=== PATIENT | female | born 1930 ===

== ENCOUNTER 2017-12-24 15:55 | Emergency (ER) | payer MEDICARE ==
[2017-12-24 16:01] VITALS: BP 133/70; PULSE 60; RESP 18; TEMP 97.6; O2SAT 99
--- NOTE | 2017-12-24 17:11 | ED PDOC ---
HPI: Abdomen Time Seen by Provider: 12/24/17 16:42 Chief Complaint (Nursing): Abdominal Pain Chief Complaint (Provider): Abdominal Pain History Per: Family (daughter) History/Exam Limitations: clinical condition (dementia) Onset/Duration Of Symptoms: Days (x1) Current Symptoms Are (Timing): Better Additional Complaint(s): 87 year old female with medical history of dementia, breast cancer and hypertension brought in daughter for evaluation. States she has been constipated and today had a large hard BM, after which she complained of chest pain, weakness and abdominal pain. Daughter stated symptoms resolved after few hours since onset. Daughter also reported that patient was recently discharged from [facility] 2 weeks ago and has an ulcer on R heel. PMD: Jai Chatterjee MD Past Medical History Reviewed: Historical Data, Nursing Documentation, Vital Signs Vital Signs: Last Vital Signs Temp 97.6 F 12/24/17 15:58 Pulse 60 12/24/17 15:58 Resp 18 12/24/17 15:58 BP 133/70 12/24/17 15:58 Pulse Ox 99 12/24/17 22:04 - Medical History PMH: Dementia, HTN, Malignancy (breast CA) Denies: No Chronic Diseases - Surgical History Surgical History: Cholecystectomy Denies: No Surg Hx Other surgeries: left breast lumpectomy - Family History Family History: States: Unknown Family Hx - Social History Current smoker - smoking cessation education provided: No Alcohol: None Drugs: Denies - Allergies Allergies/Adverse Reactions: Allergies Allergy/AdvReac Type Severity Reaction Status Date / Time No Known Allergies Allergy Verified 12/24/17 15:58 Review of Systems ROS Statement: Except As Marked, All Systems Reviewed And Found Negative Constitutional: Positive for: Weakness (generalized) Cardiovascular: Positive for: Chest Pain Gastrointestinal: Positive for: Abdominal Pain, Constipation Physical Exam - Reviewed Nursing Documentation Reviewed: Yes Vital Signs Reviewed: Yes - Physical Exam Appears: Positive for: Non-toxic, No Acute Distress Head Exam: Positive for: ATRAUMATIC, NORMAL INSPECTION, NORMOCEPHALIC Eye Exam: Positive for: Normal appearance, EOMI, PERRL Cardiovascular/Chest: Positive for: Regular Rate, Rhythm Respiratory: Positive for: Normal Breath Sounds. Negative for: Decreased Breath Sounds, Respiratory Distress Gastrointestinal/Abdominal: Positive for: Normal Exam, Soft. Negative for: Tenderness, Mass, Distended Extremity: Positive for: Tenderness (right heel), Pedal Edema, Deformity (right heel eschar), Swelling Neurologic/Psych: Positive for: Alert, inventory and pricing associate II-XII (Grossly normal). Negative for: Oriented, Facial Droop - Laboratory Results Result Diagrams: 12/24/17 17:27 12/24/17 17:27 - ECG Interpretation Of ECG: Ventricular-paced @ 60. O2 Sat by Pulse Oximetry: 99 (RA) Pulse Ox Interpretation: Normal - Radiology X-Ray: Interpreted by [facility] X-Ray Interpretation: No Acute Disease Medical Decision Making Medical Decision Making: Initial Impression: Abdominal pain Initial Plan: * CT ABD/pelvis with IV contrast * CT head without contrast * EKG * CMP * Troponin I * Urine dipstick * CBC * PTT * PT * CXR * UA ____ Time: 1857 --CT Head FINDINGS: Brain: Moderate atrophy. No intracranial hemorrhage. No mass. Mqmh-[id number] encephalomalacia within left frontal region. Several scattered foci of decreased attenuation within periventricular/subcortical white matter. No definite edema. Ventricles: No hydrocephalus. Bones/joints: No acute fracture. Soft tissues: Unremarkable. Vasculature: Atherosclerotic disease of intracranial arteries. Sinuses: No acute sinusitis. Mastoid air cells: Partial opacification of LEFT mastoid. Auditory system: Cerumen. Orbits: Unremarkable as visualized. IMPRESSION: 1. Nonspecific white matter changes. Acute infarction may be CT occult within first 24 hours. If a focal deficit persists, consider followup CT or MRI for further evaluation. 2. Mastoid disease. 3. Incidental/non-acute findings are described above. Time: 1923 --CT ABD/pelvis FINDINGS: Limitations: Motion artifact - mild. Streak artifact - mild. Lower thorax: Cfpv-ci-[id number] cardiomegaly. Pacemaker lead. Minimal atelectasis /scarring. Trace to small bilateral pleural effusions. ABDOMEN: Liver: Fatty infiltration. Small calcification. Gallbladder and bile ducts: No calcified stones. No ductal dilation. Pancreas: No ductal dilation. No mass. Spleen: 1.2 x 1.0 x 2.2 cm focal lobulation or exophytic isodense lesion. Too small to characterize hypodense lesion. No splenomegaly. Adrenals: No mass. Kidneys and ureters: Few too small to characterize lesions within kidneys. No hydronephrosis. Stomach and bowel: Postsurgical changes of sigmoid colon. Few scattered diverticula within colon. No associated inflammatory stranding. No definite mural thickening. No obstruction. Appendix: Normal caliber. No inflammation. PELVIS: Bladder: Unremarkable. Reproductive: Unremarkable as visualized. ABDOMEN and PELVIS: Intraperitoneal space: No significant fluid collection. No free air. Bones/joints: RIGHT hip arthroplasty. Dynamic compression screw left femur. Mild compression fracture superior endplate L1 vertebral body, acute or subacute. Schmorl's nodes at several levels. Degenerative changes of spine. Soft tissues: Small to moderate lower ventral hernia containing loops of small bowel without obstruction. Vasculature: Extensive atherosclerotic disease. No aneurysm. IVC filter. Lymph nodes: No pathologically enlarged lymph nodes. IMPRESSION: 1. Diverticulosis without definite CT evidence of diverticulitis. 2. L1 compression fracture, acute or subacute. 3. Possible splenic lesion. Suggest nonemergent follow up. 4. Incidental/non-acute findings are described above. ____ Time: 2049 --CT findings discussed with daughter which reported an old lumbar fracture. Explained to daughter the need for admission. Daughter stated that the patient "has dementia and is unsure if she has chest pain or not. Go ahead, ask her if she has chest pain and she'll say no". Provider asked daughter "Did you not just say that she has dementia?" Daughter became agitated and said she if going to take the patient home AMA. --Provider has discussed with patient's daughter that without further evaluation and monitoring there may be unforeseen circumstances and/or deterioration causing permanent bodily harm or as a result of their choice. The patient's daughter continues to wish to leave against medical advice. Scribe Attestation: Documented by Vivi Cruz, acting as a scribe for Smiley Casey MD. Provider Scribe Attestation: All medical record entries made by the Scribe were at my direction and personally dictated by me. I have reviewed the chart and agree that the record accurately reflects my personal performance of the history, physical exam, medical decision making, and the department course for this patient. I have also personally directed, reviewed, and agree with the discharge instructions and disposition. Disposition - Clinical Impression Clinical Impression: Chest pain - Disposition Disposition: Against Medical Advice Disposition Time: 20:47 Condition: UNKNOWN Forms: [employer] (Yoruba)
[2017-12-24 17:31] LABS: BASO # 0.1 K/uL (0.0-0.2); BASO % 0.9 % (0.0-2.0); EOS # 0.1 K/uL (0.0-0.7); EOS % 1.8 % (0.0-4.0); HEMOGLOBIN 14.4 g/dL (12.0-16.0); LYMPH # 0.9 K/uL (1.0-4.3); LYMPH % 11.7 % (20.0-40.0); MEAN CELL VOLUME 97.6 fl (81.0-99.0); MEAN CORPUSCULAR HEMOGLOBIN 31.6 pg (27.0-31.0); MEAN CORPUSCULAR HGB CONC 32.4 g/dL (33.0-37.0); MONO # 0.7 K/uL (0.0-0.8); MONO % 8.6 % (0.0-10.0); NEUT # 5.9 K/uL (1.8-7.0); NRBC % 0.2 % (0.0-0.0); RBC 4.56 Mil/uL (3.80-5.20); RED CELL DISTRIBUTION WIDTH 15.7 % (11.5-14.5); WHITE BLOOD COUNT 7.6 K/uL (4.8-10.8)
[2017-12-24 18:10] LABS: INR 1.2 (0.9-1.2); PARTIAL THROMBOPLASTIN TIME 28.9 Seconds (25.6-37.1); PROTHROMBIN TIME 13.6 Seconds (9.8-13.1)
[2017-12-24 18:15] LABS: ALBUMIN 3.7 g/dL (3.5-5.0); ALT/SGPT 32 U/L (9-52); AST/SGOT 27 U/L (14-36); BLOOD UREA NITROGEN 19 mg/dl (7-17); CALCIUM 11.5 mg/dL (8.4-10.2); GFR AFRICAN-AMERICAN > 60; GFR NON-AFRICAN AMERICAN 59
[2017-12-24] MEDS ORDERED: Sodium Chloride 0.9% 50 ML IV ONE (18:33)
[2017-12-24] MEDS ORDERED: Iohexol 300 100 ML IJ ONE (18:33)
--- NOTE | 2017-12-24 18:59 | CT ---
EXAM: CT Head Without Intravenous Contrast CLINICAL HISTORY: 87 years old, female; Signs and symptoms; Other: Near syncope TECHNIQUE: Axial computed tomography images of the head/brain without intravenous contrast. All CT scans at this facility use one or more dose reduction techniques, viz.: automated exposure control; ma/kV adjustment per patient size (including targeted exams where dose is matched to indication; i.e. head); or iterative reconstruction technique. COMPARISON: No relevant prior studies available. FINDINGS: Brain: Moderate atrophy. No intracranial hemorrhage. No mass. [id number] encephalomalacia within left frontal region. Several scattered foci of decreased attenuation within periventricular/subcortical white matter. No definite edema. Ventricles: No hydrocephalus. Bones/joints: No acute fracture. Soft tissues: Unremarkable. Vasculature: Atherosclerotic disease of intracranial arteries. Sinuses: No acute sinusitis. Mastoid air cells: Partial opacification of LEFT mastoid. Auditory system: Cerumen. Orbits: Unremarkable as visualized. IMPRESSION: 1. Nonspecific white matter changes. Acute infarction may be CT occult within first 24 hours. If a focal deficit persists, consider followup CT or MRI for further evaluation. 2. Mastoid disease. 3. Incidental/non-acute findings are described above.
--- NOTE | 2017-12-24 19:45 | CT ---
EXAM: CT Abdomen and Pelvis With Intravenous Contrast CLINICAL HISTORY: 87 years old, female; Pain; Abdominal pain; Generalized; Prior surgery; Surgery date: 6+ months; Surgery type: Gb removed; Patient HX: Breast ca. ; Additional info: Abd pain. Sent phy. Doc. TECHNIQUE: Axial computed tomography images of the abdomen and pelvis with intravenous contrast. All CT scans at this facility use one or more dose reduction techniques, viz.: automated exposure control; ma/kV adjustment per patient size (including targeted exams where dose is matched to indication; i.e. head); or iterative reconstruction technique. Coronal and sagittal reformatted images were created and reviewed. CONTRAST: 90 mL of [id number] administered intravenously. COMPARISON: No relevant prior studies available. FINDINGS: Limitations: Motion artifact - mild. Streak artifact - mild. Lower thorax: Oopk-bi-rdiquhdu cardiomegaly. Pacemaker lead. Minimal atelectasis/scarring. Trace to small bilateral pleural effusions. ABDOMEN: Liver: Fatty infiltration. Small calcification. Gallbladder and bile ducts: No calcified stones. No ductal dilation. Pancreas: No ductal dilation. No mass. Spleen: 1.2 x 1.0 x 2.2 cm focal lobulation or exophytic isodense lesion. Too small to characterize hypodense lesion. No splenomegaly. Adrenals: No mass. Kidneys and ureters: Few too small to characterize lesions within kidneys. No hydronephrosis. Stomach and bowel: Postsurgical changes of sigmoid colon. Few scattered diverticula within colon. No associated inflammatory stranding. No definite mural thickening. No obstruction. Appendix: Normal caliber. No inflammation. PELVIS: Bladder: Unremarkable. Reproductive: Unremarkable as visualized. ABDOMEN and PELVIS: Intraperitoneal space: No significant fluid collection. No free air. Bones/joints: RIGHT hip arthroplasty. Dynamic compression screw left femur. Mild compression fracture superior endplate L1 vertebral body, acute or subacute. Schmorl's nodes at several levels. Degenerative changes of spine. Soft tissues: Small to moderate lower ventral hernia containing loops of small bowel without obstruction. Vasculature: Extensive atherosclerotic disease. No aneurysm. IVC filter. Lymph nodes: No pathologically enlarged lymph nodes. IMPRESSION: 1. Diverticulosis without definite CT evidence of diverticulitis. 2. L1 compression fracture, acute or subacute. 3. Possible splenic lesion. Suggest nonemergent follow up. 4. Incidental/non-acute findings are described above.
--- NOTE | 2017-12-25 11:25 | RAD ---
HISTORY: Chest pain and abdominal pain COMPARISON: No prior. FINDINGS: LUNGS: No active pulmonary disease. PLEURA: No significant pleural effusion identified, no pneumothorax apparent. CARDIOVASCULAR: Normal. OSSEOUS STRUCTURES: No radiographic findings to suggest acute or significant cardiovascular disease. Position/ configuration of pacemaker device: Satisfactory. VISUALIZED UPPER ABDOMEN: Normal. OTHER FINDINGS: None. IMPRESSION: No active disease.
--- NOTE | 2017-12-25 13:44 | CARD ---
APPROVED REPORT EKG Measurement Heart [id number] <Conclusion> Ventricular-paced rhythm Abnormal ECG
== END 2017-12-24 21:49 | disposition left against medical advice (07) ==
LOC: H.ER 15:55
DX: R07.9 Chest pain, unspecified (principal); F03.90 Unspecified dementia, unspecified severity, without behavioral disturbance, psychotic disturbance, mood disturbance, and anxiety; I10 Essential (primary) hypertension; Z85.3 Personal history of malignant neoplasm of breast; M48.56XA Collapsed vertebra, not elsewhere classified, lumbar region, initial encounter for fracture
CPT/HCPCS: 70450; 71045; 74177; 80053; 84484; 85025; 85610; 85730; 93005; 99285; Q9967